=== PATIENT | male | born 1990 | race Caucasian/White ===

== ENCOUNTER 2016-12-15 19:20 | Emergency (ER) | payer BC ==
--- NOTE | 2016-12-16 19:07 | ER ---
ADMIT: 12/15/2016 RM/LOC: ER [facility] MR#: [id number] [facility] [address] [place], [place] [id number] JUSTIN BORJA P [address] [place] [address] Emergency Room Report SEX: M AGE: 26 : 1990 DATE: 12/15/2016 ADDENDUM: CHIEF COMPLAINT: Nausea, vomiting, diarrhea. HISTORY OF PRESENT ILLNESS: This is a 26-year-old, who ate lunch around 1:00 p.m. and started vomiting repetitively around 3:00 p.m. and also had diarrhea once. COURSE IN THE EMERGENCY ROOM: CBC and CMP were done. His white count was slightly elevated at 15.5. His chemistries were all normal. I gave him a liter of fluids, Zofran, and Toradol. His symptoms have completely resolved. He said he actually feels significantly better. CLINICAL IMPRESSION: 1. Nausea. 2. Vomiting. 3. Diarrhea. PLAN: I am discharging him home, told him to follow a bland diet for the next couple days and follow up with his primary care physician or return to the ER if worsen. TALIA Demarco / Kenneth Short MD / priya JOB #: [id number] CC: Kenneth Short MD, Attending Physician Ridge Reid MD, Family Physician
== END 2016-12-15 20:45 | disposition home or self-care (01) ==
LOC: ER 19:20
DX: R11.2 Nausea with vomiting, unspecified (principal); R19.7 Diarrhea, unspecified; Z88.0 Allergy status to penicillin; Z90.49 Acquired absence of other specified parts of digestive tract